=== PATIENT | male | born 1945 | race Caucasian/White ===

== ENCOUNTER 2021-10-04 07:17 | Emergency (ER) | payer OTHER, MEDICAID, SELFPAY ==
[~2021-10-04] VITALS: Ht 167.6 cm; Wt 83.0 kg
[2021-10-04 07:20] VITALS: BP_SYST 158
--- NOTE | 2021-10-04 07:20 | NUR ---
Placed in room 8 . Placed on rock climbing team member, blood pressure machine and pulse oximeter. To gown for exam. Side rails up. Report given to CADY BLAKE.
--- NOTE | 2021-10-04 07:22 | NUR ---
ER at bedside examining patient.
[2021-10-04] MEDS ORDERED: NITSL SL (07:38)
[2021-10-04] MEDS ORDERED: ALBU8.5H8 INH (07:38)
[2021-10-04] MEDS ORDERED: VITA1CAP PO (07:38)
[2021-10-04] MEDS ORDERED: LISI20TA30 PO (07:38)
[2021-10-04] MEDS ORDERED: LORA5SOL60 PO (07:38)
[2021-10-04] MEDS ORDERED: OMEP20TA20 PO (07:38)
[2021-10-04] MEDS ORDERED: ASA81 PO (07:38)
[2021-10-04] MEDS ORDERED: ALBU2.5V7 INH (07:38)
[2021-10-04] MEDS ORDERED: TAMS-11 PO (07:38)
[2021-10-04] MEDS ORDERED: FINA5TAB3 PO (07:38)
[2021-10-04] MEDS ORDERED: MULT-1117 PO (07:38)
--- NOTE | 2021-10-04 07:38 | NUR ---
Medication reconciliation completed with information provided by MAGDALENA HOLLOWAY. Any prior medication reconciliation on file was reviewed and corrected.
--- NOTE | 2021-10-04 07:49 | NUR ---
PT BIBA FROM [facility]AB FOR INCREASED SOB, PER CHEMICAL OPERATIONS SPECIALIST REPORT PT HAD RECEIEVED A NEBULIZER TREATMENT PRIOR TO TRANSFER. PT WAS NOT TACHYPNIC, SPEAKING IN FULL CLEAR SENTENCES, ON VIA NC @98%. PT CURRENTLY IS AAOX4, IN NAD. RESP EVEN AND UNLABORED, ON RA @98% LS-CLR ZOFIA, REPORTS MILD SOB AT TJIS TIME, DENIES CP. SPEKAING IN FULL 10-12 WORD SENTNECES, PT IS VERY TALKACTIVE. 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 SKI W/D/I. SAFETY PRECAUTIONS IN PLACE.
[2021-10-04 07:54] LABS: BASOPHILS % (AUTO) 0.3 % (0.0-2.0); EOSINOPHILS % (AUTO) 0.6 % (0.0-4.0); HEMATOCRIT 34.7 % (36-54); HEMOGLOBIN 12.2 g/dL (14.0-18.0); LYMPHOCYTES # (AUTO) 0.7 K/uL (1.0-5.5); LYMPHOCYTES % (AUTO) 9.9 % (20.5-51.5); MEAN CORPUSCULAR HEMOGLOBIN 35 pg (27-31); MEAN CORPUSCULAR HGB CONC 35 % (32-36); MEAN CORPUSCULAR VOLUME 100 fL (79.0-98.0); MONOCYTES # (AUTO) 0.5 K/uL (0.0-1.0); MONOCYTES % (AUTO) 7.2 % (1.7-9.3); NEUTROPHILS # (AUTO) 5.8 K/uL (1.8-7.7); PLATELET COUNT (AUTO) 237 K/uL (130-430); RED BLOOD CELL COUNT(AUTO) 3.46 MIL/uL (4.2-6.2); RED CELL DISTRIBUTION WIDTH 13.2 % (9.0-15.0)
[2021-10-04 08:11] LABS: ANION GAP 12 (5-15); CALCIUM 8.3 mg/dL (8.4-11.0); CHLORIDE 102 mmol/L (98-107); CREATININE 1.25 mg/dL (0.55-1.30); GLUCOSE 113 mg/dL (70-99); POTASSIUM 3.6 mmol/L (3.5-5.1); SODIUM SERUM 137 mmol/L (136-145); UREA NITROGEN, BLOOD 16 mg/dL (8-21)
[2021-10-04 08:20] LABS: ALANINE AMINOTRANSFERASE 20 U/L (12-78); ALBUMIN 3.9 g/dL (3.4-4.8); ASPARTATE AMINOTRANSFERASE 19 U/L (10-37); TOTAL BILIRUBIN 0.9 mg/dL (0.0-1.0)
--- NOTE | 2021-10-04 09:27 | NUR ---
NO ACUTE CHNAGES IN CONDITION, PT VERY TALKACTIVE, PLEASANT. IN NAD. RESP EVEN AND UNLABORED, ON RA @99%
--- NOTE | 2021-10-04 10:05 | NUR ---
Spoke to [employer] Senior Brand Manager and they stated they will call back with ETA for transport back to facility
--- NOTE | 2021-10-04 10:43 | NUR ---
SPOKE TO EVIE JACKSON DIRECTOR OF SUSTAINABILITY, CALLED BACK AND UPDATED ON ETA HUMAN RELATIONS TEACHER ETA [phone]
--- NOTE | 2021-10-04 11:20 | NUR ---
PT WAS ASSISTED TO BEDSIDE COMMODE, HAD A SMALL SOLID BM.
--- NOTE | 2021-10-04 11:29 | NUR ---
AMBULANCE CO. TO GAS FITTER HELPER PT AND TRANSFER TO [facility]. PT STABLE FOR TRANSFER. VSS.
[2021-10-04 11:30] VITALS: BP_SYST 128
--- NOTE | 2021-10-04 11:30 | NUR ---
Patient given written and verbal discharge instructions and verbalizes understanding. ER MD discussed with patient the results and treatment provided. Patient in stable condition. ID arm band removed. IV catheter removed intact and dressing applied, no active bleeding. Patient educated on pain management and to follow up with PMD. Pain Scale . Opportunity for questions provided and answered. Medication side effect fact sheet provided.
== END 2021-10-04 11:30 ==
LOC: SED 07:17
DX: J44.1 Chronic obstructive pulmonary disease with (acute) exacerbation (principal); Z79.899 Other long term (current) drug therapy; Z79.82 Long term (current) use of aspirin; Z20.822 Contact with and (suspected) exposure to COVID-19
CPT/HCPCS: 36415; 71045; 80053; 83880; 84484; 85025; 93005; 99285

== ENCOUNTER 2022-10-26 06:38 | Emergency (ER) | payer OTHER, MEDICAID ==
[~2022-10-26] VITALS: Ht 167.6 cm; Wt 90.7 kg
[~2022-10-26 06:38] MED LIST: ALBU2.5V7 INH; ALBU8.5H8 INH; ASA81 PO; FINA5TAB3 PO; LISI20TA30 PO; LORA5SOL60 PO; MULT-1117 PO; NITSL SL; OMEP20TA20 PO; TAMS-11 PO; VITA1CAP PO
[2022-10-26 06:46] VITALS: BP_SYST 149
[2022-10-26] MEDS ORDERED: IPRATROPIUM/ALBUTEROL SULFATE 3 ML AMPUL.NEB (DUONEB) INH ONE (07:00)
[2022-10-26] MEDS ORDERED: FINA5TAB11 PO (07:24)
[2022-10-26] MEDS ORDERED: TAMS0.4C96 PO (07:24)
[2022-10-26 08:35] LABS: BASOPHILS % (AUTO) 0.6 % (0.0-2.0); EOSINOPHILS # (AUTO) 0.6 K/uL (0.0-0.4); EOSINOPHILS % (AUTO) 9.3 % (0.0-4.0); HEMATOCRIT 32.1 % (36-54); HEMOGLOBIN 11.3 g/dL (14.0-18.0); LYMPHOCYTES % (AUTO) 15.5 % (20.5-51.5); MEAN CORPUSCULAR HEMOGLOBIN 37 pg (27-31); MEAN CORPUSCULAR HGB CONC 35 % (32-36); MEAN CORPUSCULAR VOLUME 106 fL (79.0-98.0); MONOCYTES # (AUTO) 0.6 K/uL (0.0-1.0); MONOCYTES % (AUTO) 9.7 % (1.7-9.3); NEUTROPHILS # (AUTO) 4.2 K/uL (1.8-7.7); NEUTROPHILS % (AUTO) 64.9 % (40.0-70.0); PLATELET COUNT (AUTO) 209 K/uL (130-430); RED BLOOD CELL COUNT(AUTO) 3.02 MIL/uL (4.2-6.2); RED CELL DISTRIBUTION WIDTH 13.7 % (9.0-15.0); WHITE BLOOD COUNT (AUTO) 6.5 K/uL (4.8-10.8)
[2022-10-26 08:59] LABS: ALANINE AMINOTRANSFERASE 21 U/L (12-78); ALBUMIN 3.4 g/dL (3.4-4.8); ANION GAP 10 (5-15); ASPARTATE AMINOTRANSFERASE 15 U/L (10-37); CALCIUM 8.4 mg/dL (8.4-11.0); CHLORIDE 106 mmol/L (98-107); CREATININE 1.23 mg/dL (0.55-1.30); GLUCOSE 90 mg/dL (70-99); TOTAL BILIRUBIN 0.8 mg/dL (0.0-1.0); UREA NITROGEN, BLOOD 21 mg/dL (8-21)
[2022-10-26 11:24] VITALS: BP_SYST 133
== END 2022-10-26 12:21 | disposition home or self-care (01) ==
LOC: SED 06:38
DX: J06.9 Acute upper respiratory infection, unspecified (principal); R05.9 Cough, unspecified; R06.02 Shortness of breath; J44.9 Chronic obstructive pulmonary disease, unspecified; I10 Essential (primary) hypertension; Z79.899 Other long term (current) drug therapy; Z20.822 Contact with and (suspected) exposure to COVID-19
CPT/HCPCS: 36415; 71045; 80053; 83880; 84484; 85025; 93005; 94640; 99284

== ENCOUNTER 2023-03-14 08:14 | Emergency (ER) | payer OTHER, MEDICAID ==
[~2023-03-14] VITALS: Ht 175.3 cm; Wt 93.0 kg
[~2023-03-14 08:14] MED LIST changes: +FINA5TAB11 PO; +TAMS0.4C96 PO
--- NOTE | 2023-03-14 08:20 | NUR ---
Patient to ER bed 1 to gown for evaluation. Side rails up. Report given to CARLOTA LAZAR.
--- NOTE | 2023-03-14 08:21 | NUR ---
RECEIVED PT FROM CADY MACHUCA. PT BIBS FROM HOME WITH C/O SOB. PT HAS COPD. O2 SAT 96% ON R/A. PT IS AAOX4. ON R/A. LUNG SOUND DIMINISHED BILATERALLY. DENIES N/V/D/C. DISTAL PULSES NORMAL, SKIN WARM, CDI. BLE 1+ EDEMA NOTED. DENIES PAIN. VSS. SIDERAILS UP X2.
--- NOTE | 2023-03-14 08:22 | NUR ---
DR. BLAKELY AT BEDSIDE TO ASSESS PT.
[2023-03-14 08:25] VITALS: BP_SYST 118; PULSE 97; RESP 22; TEMP 97; O2SAT 96
[2023-03-14] MEDS ORDERED: methylPREDNISolone SOD SUCC/PF 62.5 MG/ML VIAL IVP ONE (08:45)
[2023-03-14] MEDS ORDERED: IPRATROPIUM/ALBUTEROL SULFATE 3 ML AMPUL.NEB (DUONEB) INH ONE (08:45)
--- NOTE | 2023-03-14 08:57 | NUR ---
BREATHING TX GIVEN.
--- NOTE | 2023-03-14 09:00 | NUR ---
# 20 gauge angiocath placed to LAC. Use of asceptic technique. Opsite placed over site. Blood return noted. Blood for lab drawn from site. Flushed with 10 cc of normal saline. No evidence of infiltration noted. Patient tolerated well.
[2023-03-14 09:04] LABS: BASOPHILS % (AUTO) 0.1 % (0.0-2.0); EOSINOPHILS % (AUTO) 0.1 % (0.0-4.0); HEMATOCRIT 34.5 % (36-54); HEMOGLOBIN 11.5 g/dL (14.0-18.0); LYMPHOCYTES # (AUTO) 0.6 K/uL (1.0-5.5); LYMPHOCYTES % (AUTO) 7.9 % (20.5-51.5); MEAN CORPUSCULAR HEMOGLOBIN 34 pg (27-31); MEAN CORPUSCULAR HGB CONC 33 % (32-36); MEAN CORPUSCULAR VOLUME 101 fL (79.0-98.0); MONOCYTES # (AUTO) 0.4 K/uL (0.0-1.0); MONOCYTES % (AUTO) 5.3 % (1.7-9.3); NEUTROPHILS # (AUTO) 6.9 K/uL (1.8-7.7); NEUTROPHILS % (AUTO) 86.6 % (40.0-70.0); PLATELET COUNT (AUTO) 237 K/uL (130-430); RED BLOOD CELL COUNT(AUTO) 3.42 MIL/uL (4.2-6.2); RED CELL DISTRIBUTION WIDTH 13.9 % (9.0-15.0)
--- NOTE | 2023-03-14 09:10 | NUR ---
SOLUMEDROL IVP GIVEN AND TOLERATED WELL.
[2023-03-14 09:22] LABS: ALANINE AMINOTRANSFERASE 18 U/L (12-78); ALBUMIN 3.8 g/dL (3.4-4.8); ANION GAP 11 (5-15); ASPARTATE AMINOTRANSFERASE 16 U/L (10-37); CALCIUM 8.7 mg/dL (8.4-11.0); CHLORIDE 105 mmol/L (98-107); CREATININE 1.15 mg/dL (0.55-1.30); GLUCOSE 131 mg/dL (74-106); TOTAL BILIRUBIN 0.9 mg/dL (0.0-1.0); UREA NITROGEN, BLOOD 20 mg/dL (8-21)
[2023-03-14] MEDS ORDERED: PRED20TA PO (09:52)
--- NOTE | 2023-03-14 10:07 | NUR ---
Patient given written and verbal discharge instructions and verbalizes understanding. ER MD discussed with patient the results and treatment provided. Patient in stable condition. ID arm band removed. IV catheter removed intact and dressing applied, no active bleeding. Rx of PREDNISONE given. Patient educated on pain management and to follow up with PMD. Pain Scale 0/10. Opportunity for questions provided and answered. Medication side effect fact sheet provided.
[2023-03-14 10:13] VITALS: BP_SYST 121; PULSE 72; RESP 20; TEMP 97.7; O2SAT 97
== END 2023-03-14 10:07 | disposition home or self-care (01) ==
LOC: SED 08:14
DX: J44.1 Chronic obstructive pulmonary disease with (acute) exacerbation (principal); R05.9 Cough, unspecified; R06.02 Shortness of breath; I10 Essential (primary) hypertension; Z79.899 Other long term (current) drug therapy
CPT/HCPCS: 99285; 96374; 71045; 80053; 85025; 84484; 36415; 93005; 94640; J2930